=== PATIENT | female | born 1975 | race Caucasian/White ===

== ENCOUNTER 2016-07-05 15:33 | Emergency (ER) | payer OTHER, MEDICAID ==
[2016-07-05 15:38] VITALS: TEMP 98.8
[2016-07-05] MEDS ORDERED: NS 1,000 ML IV ONE ×2 (16:22→18:14)
[2016-07-05] MEDS ORDERED: PROMETHAZINE HCL 25 MG/ML INJ IVP ONE ×2 (16:22→18:22)
[2016-07-05] MEDS ORDERED: HYDROmorphONE/DILAUDID 1 MG/ML SYR IVP ONE ×2 (16:22→17:34)
--- NOTE | 2016-07-05 16:24 | EDPHY ---
H & P Stated Complaint: High blood sugar Time Seen by Provider: 07/05/16 15:43 HPI/ROS: CHIEF COMPLAINT: Whole-body pain, abdominal pain, and nausea HISTORY OF PRESENT ILLNESS: This is a 41 year old female with h/o SLE, chronic pain, anxiety, fibromyalgia and DM type 2 who reports concerned about "whole body pain", abdominal pain, and nausea. This has been present since she underwent endoscopy and colonoscopy one month ago. She states that polyps were reoved. She had some bleeding afterwards and still notes some spotting on the toilet tissue after bowel movements. She is worried that she might be anemic. She feels fatigued. She has early satiety and abdominal bloating after eating.She has nausea but no vomiting. She tells me that she has cut back on her PO intake. The abdominal pain is a cramping sensation, worse after meals. She has been having bowel movements, some occasional diarrhea. Her gall bladder has been removed. She has seen her PCP (three days ago) and has an appointment on 07/13/16 with her her artillery meteorological man. An abdominal CT has been ordered as an outpatient on . She is also worried about high blood sugars and states that her BS have been up to 250, which is unusual for her. All of the above is worsening her chronic anxiety REVIEW OF SYSTEMS: A ten point review of systems was performed and is negative with the exception of the items mentioned in the HPI. Source: Patient Exam Limitations: No limitations - Personal History LMP (Females 10-55): Now Current Tetanus/Diphtheria Vaccine: Unsure Current Tetanus Diphtheria and Acellular Pertussis (TDAP): Unsure - Medical/Surgical History Hx Asthma: Yes Hx Chronic Respiratory Disease: No Hx Diabetes: Yes Hx Cardiac Disease: No Hx Renal Disease: No Hx Cirrhosis: No Hx Alcoholism: No Hx HIV/AIDS: No Hx Splenectomy or Spleen Trauma: No Other PMH: pmh- lupus, seizures, asthma, kidney stones, DM II, anxiety, chronic pain. psh- 18 surgeries- cholecystectomy, appendectomy, legs, thyroid, THYMOMA, - Social History Smoking Status: Never smoked Additional Social History: Lives with and son. No tobacco or alcohol use. She is disabled. - Physical Exam Exam: General: Appears anxious. Alert. BP 162/85. HEENT: Conjunctiva clear, anicteric. Oral mucosa moist. Oropharynx without edema or erythema. Neck: No lymphadenopathy. Trachea midline. Lungs: CTA, no wheezes, rales, or ronchi. Cardiac: RRR, no murmur, rub, or gallop.' Abdomen: Obese, soft, mild diffuse tenderness without focal area of worse tenderness, no guarding. Unable to assess for organomegaly due to body habitus. Bowel sounds present. Back: No CVAT. No tenderness with palpation of T-L spine. Skin: Warm and dry, no rash. Pulses: 2+ radial pulses. Extremities: No LE edema. No calf pain or swelling. Neuro: Alert, oriented to person, place, time, situation.PERRL. EOMI. Tongue midline. Facial expressions symmetric. Moving all four extremities easily and equally. Psych: No agitation. Anxious affect. Constitutional: Initial Vital Signs Temperature (C) 37.1 C 07/05/16 15:35 Heart Rate 87 07/05/16 15:35 Respiratory Rate 16 07/05/16 15:35 Blood Pressure 162/85 H 07/05/16 15:35 O2 Sat (%) 96 07/05/16 15:35 O2 Delivery Mode Room Air O2 (L/minute) 2 Allergies/Adverse Reactions: amoxicillin [Amoxicillin] Allergy (Unknown, Verified 05/22/16 10:21) droperidol [From Inapsine] Allergy (Unknown, Verified 05/22/16 10:21) prochlorperazine edisylate [From Compazine] Allergy (Unknown, Verified 05/22/16 10:21) prochlorperazine maleate [From Compazine] Allergy (Unknown, Verified 05/22/16 10 :21) sulfamethoxazole [From Bactrim] Allergy (Unknown, Verified 05/22/16 10:21) trimethoprim [From Bactrim] Allergy (Unknown, Verified 05/22/16 10:21) Butyrophenones Allergy (Verified 05/22/16 10:21) latex [Latex] Allergy (Verified 05/22/16 10:21) Penicillins Allergy (Verified 05/22/16 10:21) Home Medications: Medication Instructions Recorded Acetaminophen [Tylenol 325mg (*)] 325 mg PO Q6 PRN 04/29/15 Albuterol [Proventil Inhaler HFA 2 puffs IH Q4 PRN 04/29/15 (*)] Gabapentin 600 mg PO TID 04/29/15 Herbals/Supplements -Info Only 1 ea PO DAILY 04/29/15 Hydroxychloroquine Sulfate 200 mg PO BID 04/29/15 [Plaquenil 200 mg (*)] Levothyroxine [Synthroid 100 mcg 300 mcg PO HS 04/29/15 (*)] Losartan Potassium [Cozaar 25 mg 25 mg PO DAILY 04/29/15 (*)] Metformin HCl [Metformin 1000 mg] 1,000 mg PO DAILY 04/29/15 NIFEDipine [Nifedical Xl] 15 mg PO BID 04/29/15 Nitroglycerin [Nitrostat] 0.6 mg SL PRN PRN 04/29/15 Nystatin [Mycostatin Oral Liquid 5 ml PO QID 04/29/15 (*)] Omeprazole 40 mg PO DAILY 04/29/15 Triamcinolone 0.1% [Triamcinolone 1 radha TP BID PRN 04/29/15 0.1% Cream (*)] celeCOXIB [Celebrex (*)] 200 mg PO BID 04/29/15 levETIRAcetam [Keppra 500 mg (*)] 500 mg PO BID 04/29/15 methylPREDNISolone [Medrol 4mg (*)] 6 mg PO DAILY 04/29/15 oxyCODONE CR [Oxycontin] 80 mg PO BID 04/29/15 oxyCODONE IR [Oxycodone Ir (*)] 30 mg PO Q6 PRN 04/29/15 Lorazepam 2 mg PO TID PRN #30 tablet 05/05/15 Nortriptyline HCl [Pamelor 25 mg 50 mg PO HS #30 cap 05/05/15 (*)] Promethazine HCl [Phenergan 12.5 mg [place] BID PRN #10 suppr 05/05/15 Rectal] Promethazine HCl [Phenergan 25mg 75 mg PO HS #30 tab 05/05/15 (*)] Ranitidine HCl 150 mg PO BID #60 tablet 05/05/15 Sucralfate [Carafate] 1 gm PO ACHS #40 tab 05/05/15 Lasix 20 MG (*) 20 mg PO PRN 04/02/16 Medical Decision Making ED Course/Re-evaluation: Re-evaluated at 4:45 p.m.. She continues with diffuse abdominal pain. She has not had vomiting. Re-evaluated at 5:40 p.m.. She has just received a 2nd dose of Dilaudid 0.5 mg IV. On examination she continues with mild diffuse abdominal pain no peritoneal signs. She has a CT scan of abdomen and pelvis scheduled as an outpatient and this has been rescheduled from the to tomorrow. It has been ordered by the gastroenterology service and should be done with IV and oral contrast. Re-evaluated at 6:30 p.m.. She is feeling better after receiving 1.5 mg of Dilaudid IV and 25 mg of Phenergan IV. I reviewed her blood work. AST and ALT are elevated and have been in the past (although they are somewhat higher tonight them previously). She has had a cholecystectomy. She does not have focal right upper quadrant or mid epigastric tenderness. She is compliant with her acid blocking medications. Her blood sugar is 143. Hemoglobin and hematocrit have been improving over the past month. I am not finding anything in her lab work that needs further evaluation tonight. I do not suspect infection. Urinalysis does not show signs of infection. She has not had cough or shortness of breath and her lungs are clear to auscultation, making pneumonia unlikely. She has no complaints of an upper respiratory infection. Her abdominal pain is long-standing, present for at least a month, beginning after her colonoscopy. I do not suspect perforation or abscess. She has been seen by her primary care physician and by her artillery meteorological man for this complaint. She has GI FU next week after CT scan. I have reassured her that her blood glucose is 143 tonight and can be followed up by her PCP. I do not feel that she needs needs emergent scanning of her abdomen and pelvis. This has been scheduled by her artillery meteorological man as an outpatient study and will be performed tomorrow. She has undergone serial abdominal exams and at no time has she had peritoneal signs. Differential Diagnosis: I considered a differential diagnosis that includes but is not limited to pancreatitis, peptic ulcer disease, bowel obstruction, viscus perforation, intra -abdominal abscess, diverticulitis, urinary tract infection. - Data Points Laboratory Results: Laboratory Results 07/05/16 16:10 07/05/16 16:10 Medications Given: Discontinued Medications Hydromorphone HCl (Dilaudid) 1 mg IVP EDNOW ONE Stop: 07/05/16 16:23 Last Admin: 07/05/16 16:31 Dose: 1 mg Hydromorphone HCl (Dilaudid) 0.5 mg IVP EDNOW ONE Stop: 07/05/16 17:35 Last Admin: 07/05/16 17:35 Dose: 0.5 mg Sodium Chloride (Ns) 1,000 mls @ 0 mls/hr IV ONCE ONE PRN Reason: Wide Open Stop: 07/05/16 16:23 Last Admin: 07/05/16 16:31 Dose: 1,000 mls Sodium Chloride (Ns) 1,000 mls @ 0 mls/hr IV ONCE ONE PRN Reason: Wide Open Stop: 07/05/16 18:15 Last Admin: 07/05/16 18:15 Dose: 1,000 mls Promethazine HCl (Phenergan Injection) 12.5 mg IVP EDNOW ONE Stop: 07/05/16 16:23 Last Admin: 07/05/16 16:32 Dose: 12.5 mg Promethazine HCl (Phenergan Injection) 12.5 mg IVP ONCE ONE Stop: 07/05/16 18:23 Last Admin: 07/05/16 18:24 Dose: 12.5 mg Departure - Departure Disposition: Home, Routine, Self-Care Clinical Impression: Abdominal pain Qualifiers: Abdominal location: generalized Qualifier Code: (R10.84) Generalized abdominal pain Condition: Good Instructions: Abdominal Pain (ED) Additional Instructions: CT scan of her abdomen and pelvis is been rescheduled for tomorrow. Drink the contrast as instructed. Your appointment is at noon tomorrow. Referrals: Holly Devries MD [Primary Care Provider] - As per Instructions Hamzah Rios MD [Medical Doctor] - As per Instructions
[2016-07-05 16:45] LABS: % IMMATURE GRANULYOCYTES 0.6 % (0.0-1.1); ABSOLUTE IMMATURE GRANULOCYTES 0.03 10^3/uL (0.00-0.10); ADD DIFF? NO; ADD MORPH? NO; ADD SCAN? NO; ATYPICAL LYMPHOCYTE FLAG 10 (0-99); FRAGMENT RBC FLAG 0 (0-99); HEMATOCRIT 37.6 % (38.0-47.0); HEMOGLOBIN 12.6 g/dL (12.6-16.3); LEFT SHIFT FLG 0 (0-99); LIPEMIA HEMOLYSIS FLAG 80 (0-99); MEAN CELL HEMOGLOBIN 29.4 pg (27.9-34.1); MEAN CELL HEMOGLOBIN CONCENTR. 33.5 g/dL (32.4-36.7); MEAN CELL VOLUME 87.6 fL (81.5-99.8); MEAN PLATELET VOLUME 10.5 fL (8.7-11.7); PLATELET CLUMPS FLAG 20 (0-99); PLATELET COUNT 182 10^3/uL (150-400); RED BLOOD CELL COUNT 4.29 10^6/uL (4.18-5.33); RED CELL DISTRIBUTION WIDTH 14.9 % (11.5-15.2)
[2016-07-05 16:56] LABS: ALANINE AMINOTRANSFERASE 113 IU/L (9-52); ALBUMIN 3.6 g/dL (3.5-5.0); ALKALINE PHOSPHATASE 104 IU/L (38-126); ANION GAP 13 mEq/L (8-16); ASPARTATE AMINOTRANSFERASE 240 IU/L (14-46); BILIRUBIN,TOTAL 0.7 mg/dL (0.1-1.4); BILIRUBIN-CONJUGATED 0.5 mg/dL (0.0-0.5); BILIRUBIN-UNCONJUGATED 0.2 mg/dL (0.0-1.1); CALCIUM 8.9 mg/dL (8.5-10.4); CARBON DIOXIDE 23 mEq/l (22-31); CHLORIDE 105 mEq/L (97-110); CREATININE 0.5 mg/dL (0.6-1.0); GLOMERULAR FILTRATION RATE > 60; GLUCOSE 143 mg/dL (70-100); SODIUM 141 mEq/L (134-144); TOTAL PROTEIN 7.1 g/dL (6.3-8.2)
[2016-07-05] MEDS ORDERED: HYDROmorphONE/DILAUDID 1 MG/ML SYR ONE (17:31)
[2016-07-05] MEDS ORDERED: PROMETHAZINE HCL 25 MG/ML INJ ONE (18:19)
[2016-07-05 18:20] LABS: COLOR YELLOW; LEUKOCYTE ESTERASE,URINE NEGATIVE (NEGATIVE); NITRITE,URINE NEGATIVE (NEGATIVE)
[2016-07-05 18:24] LABS: BACTERIA TRACE /hpf (NONE SEEN); MUCUS TRACE /lpf (NONE-1+)
[2016-07-05 19:17] VITALS: BP 157/60; PULSE 76; RESP 16; O2SAT 98
== END 2016-07-05 19:17 | disposition home or self-care (01) ==
DX: R10.84 Generalized abdominal pain (principal); J45.909 Unspecified asthma, uncomplicated; E11.9 Type 2 diabetes mellitus without complications; Z90.49 Acquired absence of other specified parts of digestive tract; Z91.040 Latex allergy status
CPT/HCPCS: 96361; 96374; 96375; 96376; 99284; J1170; J2550; 82947-QW

== ENCOUNTER → 2016-07-06 | Outpatient (CLI) | payer OTHER, MEDICAID ==
[~2016-07-06] MED LIST: IOPAMIDOL (ISOVUE-300) 100 ML BTL IV ONE
--- NOTE | 2016-07-06 18:26 | CT ---
CT Scan of the Abdomen and Pelvis (With Contrast) 1739 hours History: Generalized abdominal pain. History of lupus and diabetes. Previous abdominal surgeries. Hepatic steatosis (K 76.0). Long-term medication use (V 58.69) Technique: Axial computed tomographic images of the abdomen and pelvis were obtained with the unevent ful intravenous administration of 100 mL Isovue-300 contrast. Oral contrast was also administered. Im ages were reviewed in multiple planes. Dose reduction techniques were utilized. CT Abdomen and Pelvis Findings: Comparison to prior CT study of April 29, 2015. Comparison also to prior noncontrast CT study from July 23, 2014. Lung bases: Normal. Liver: There are numerous nodules demonstrate increased density within the liver measuring between 9 and 16 mm in diameter. Allowing for slight difference in technique, these appear to have been present previously. On the prior noncontrast CT exam these were also increased in attenuation. There is stab le lobulated contour to the liver with some areas of more prominent hypodensity diffusely compatible with hepatic steatosis. No definite new hepatic mass is identified. The liver is mildly enlarged yovana uring 21.5 cm in length.. Spleen: Stable borderline splenomegaly measuring 13.7 x 6.7 x 11.6 cm without focal abnormality. Gallbladder and Bile Ducts: Previous cholecystectomy. No biliary ductal dilatation is identified. Pancreas: Normal. Adrenals: Normal. Kidneys: There is a stable 8 mm nonobstructive calculus lower pole left kidney. No new renal calculi are seen or evidence of mass. There is no hydronephrosis. Abdominal Aorta: No aneurysm. Pelvic structures: The uterus has a normal contour. No adnexal mass is seen. Bladder: Normal. Appendix: Previous appendectomy. Bowel Loops: Normal. No bowel obstruction, ascites, or significant retroperitoneal lymphadenopathy. Skeletal system: Vertebral body heights are well-maintained. There are no significant lytic or scler otic osseous lesions. Impression: 1. Numerous increased density nodules involving the right and left lobes of the liver that allowing f or slight difference in technique appear to be stable when compared to prior studies. These were dens e on prior noncontrast CT study of the abdomen. This could represent regenerating nodules with surrou nding hepatic steatosis. Considering the relative lack of change, the possibility of hepatocellular c arcinoma is felt to be much less likely. 2. No CT evidence of abscess or bowel obstruction. 3. Nonobstructive calculus lower pole left kidney.
== END ==
LOC: FIMAGING 16:56
PROVIDERS: ATTEND Internal Medicine Gastroenterology
DX: K76.89 Other specified diseases of liver (principal); K76.0 Fatty (change of) liver, not elsewhere classified; N20.0 Calculus of kidney; E11.9 Type 2 diabetes mellitus without complications
CPT/HCPCS: 74174; Q9967

== ENCOUNTER 2016-09-24 18:04 | Emergency (ER) | payer OTHER, MEDICAID ==
[2016-09-24 18:27] VITALS: RESP 16; TEMP 98.4
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
[2016-09-24] MEDS ORDERED: OXYCODONE/APAP 5/325 TAB PO ONE (19:11)
[2016-09-24] MEDS ORDERED: NS 1,000 ML IV ONE (19:11)
[2016-09-24] MEDS ORDERED: PROMETHAZINE HCL 25 MG TAB PO ONE (19:11)
[2016-09-24 20:10] LABS: % IMMATURE GRANULYOCYTES 0.2 % (0.0-1.1); ABSOLUTE IMMATURE GRANULOCYTES 0.01 10^3/uL (0.00-0.10); ADD DIFF? NO; ADD MORPH? NO; ADD SCAN? NO; ATYPICAL LYMPHOCYTE FLAG 10 (0-99); FRAGMENT RBC FLAG 0 (0-99); HEMATOCRIT 35.2 % (38.0-47.0); HEMOGLOBIN 11.6 g/dL (12.6-16.3); LEFT SHIFT FLG 0 (0-99); LIPEMIA HEMOLYSIS FLAG 80 (0-99); MEAN CELL HEMOGLOBIN 29.5 pg (27.9-34.1); MEAN CELL VOLUME 89.6 fL (81.5-99.8); PLATELET CLUMPS FLAG 0 (0-99); PLATELET COUNT 152 10^3/uL (150-400); RED BLOOD CELL COUNT 3.93 10^6/uL (4.18-5.33); RED CELL DISTRIBUTION WIDTH 14.4 % (11.5-15.2)
[2016-09-24 20:26] LABS: ANION GAP 9 mEq/L (8-16); CALCIUM 9.3 mg/dL (8.5-10.4); CARBON DIOXIDE 27 mEq/l (22-31); CHLORIDE 104 mEq/L (97-110); CREATININE 0.5 mg/dL (0.6-1.0); GLOMERULAR FILTRATION RATE > 60; GLUCOSE 166 mg/dL (70-100); POTASSIUM 3.6 mEq/L (3.5-5.2); SODIUM 140 mEq/L (134-144)
[2016-09-24 21:15] VITALS: BP 154/94; PULSE 96; O2SAT 98
[2016-09-26 18:43] LABS: HEMOGLOBIN A1C 7.4 % (4.0-6.0)
== END 2016-09-24 21:14 | disposition home or self-care (01) ==
DX: R51 Headache (principal); J45.909 Unspecified asthma, uncomplicated; E11.9 Type 2 diabetes mellitus without complications; Z91.040 Latex allergy status; Z79.84 Long term (current) use of oral hypoglycemic drugs

== ENCOUNTER 2018-07-01 16:17 | Inpatient (IN) | payer OTHER, MEDICAID ==
--- NOTE | 2018-07-01 17:10 | EDPHY ---
H & P Stated Complaint: dizzy and diaphoretic - Personal History Current Tetanus/Diphtheria Vaccine: Yes Current Tetanus Diphtheria and Acellular Pertussis (TDAP): Yes - Medical/Surgical History Hx Asthma: Yes Hx Chronic Respiratory Disease: No Hx Diabetes: Yes Hx Cardiac Disease: No Hx Renal Disease: No Hx Cirrhosis: No Hx Alcoholism: No Hx HIV/AIDS: No Hx Splenectomy or Spleen Trauma: No Other PMH: pmh- lupus, seizures, asthma, kidney stones, DM II, anxiety, chronic pain. psh- 18 surgeries- abd, legs, thyroid, THYMOMA, fibromyalgia - Social History Smoking Status: Never smoked Time Seen by Provider: 07/01/18 16:39 HPI/ROS: CHIEF COMPLAINT: Low back pain, urinary incontinence HISTORY OF PRESENT ILLNESS: 43-year-old female with medical history significant for chronic back pain, lupus, arrives via private vehicle with her care provider stating that 2 weeks ago she sustained mechanical fall x2. This was not a syncopal episode. Ever since seems to have exacerbated her chronic low back pain which has been particularly worse in the past 24 hr, unrelieved by her usual course of opiates and benzodiazepines. Today she had 4 episodes of urinary incontinence. She has previously seen Dr. Jasiel Roche who recommend she go to the ER for evaluation if she developed incontinence. No direct trauma to her back today or recently. No Abdominal pain. No head injury. No lower extremity radiculopathy. Denies fecal incontinence. Denies saddle anesthesia. No fever no chills. No flu-like symptoms. PRIMARY CARE PROVIDER: REVIEW OF SYSTEMS: 10 systems reviewed and negative with the exception of the elements mentioned in the history of present illness PAST MEDICAL & SURGICAL HISTORY: Morbid obesity. Lupus. Chronic low back pain. Opiate dependence SOCIAL HISTORY:Lives with her and college-aged child. PHYSICAL EXAM (Prior to examination, patient consented to physical exam, hands were washed and my usual and customary physical exam procedures followed) 1) GENERAL: Obese. Alert and oriented. Appears nontoxic. 2) HEAD: Normocephalic, atraumatic 3) HEENT: Pupils equal, round, reactive to light bilaterally. Sclera anicteric. 4) NECK: Full range of motion, no meningeal signs. 5) LUNGS: Clear auscultation bilaterally, no wheezes, no rhonchi, no retractions. 6) HEART: Regular rate and rhythm, no murmur, no heave, no gallop. 7) ABDOMEN: No guarding, no rebound, no focal tenderness, negative McBurney's, negative Thibodeaux's, negative Rovsing's, negative peritoneal sign, 8) MUSCULOSKELETAL: Moving all extremities, no focal areas of tenderness, no obvious trauma. No peripheral edema or discoloration. 9) BACK: Tender to palpation midline low lumbar region. No effusion. No step- off. Hyporeflexive left left patella and Achilles. Right lower extremity: Patella and Achilles reflexes are strong. No footdrop. 10) SKIN: No rash, no petechiae. 11) Psychiatric: Patient is oriented X 3, there is no agitation. DIFFERENTIAL DIAGNOSIS: In no particular order, including but not limited to, fracture, sprain/strain, cauda equina, spinal infectious etiology. (Jaleesa Castellanos) Constitutional: Initial Vital Signs Temperature (C) 37 C 07/01/18 16:31 Heart Rate 80 07/01/18 16:31 Respiratory Rate 16 07/01/18 16:31 Blood Pressure 150/99 H 07/01/18 16:31 O2 Sat (%) 92 07/01/18 16:31 O2 Delivery Mode Room Air O2 (L/minute) 3 Allergies/Adverse Reactions: amoxicillin [Amoxicillin] Allergy (Unknown, Verified 07/01/18 16:26) droperidol [From Inapsine] Allergy (Unknown, Verified 07/01/18 16:26) prochlorperazine edisylate [From Compazine] Allergy (Unknown, Verified 07/01/18 16:26) prochlorperazine maleate [From Compazine] Allergy (Unknown, Verified 07/01/18 16 :26) sulfamethoxazole [From Bactrim] Allergy (Unknown, Verified 07/01/18 16:26) trimethoprim [From Bactrim] Allergy (Unknown, Verified 07/01/18 16:26) Butyrophenones Allergy (Verified 07/01/18 16:26) latex [Latex] Allergy (Verified 07/01/18 16:26) Penicillins Allergy (Verified 07/01/18 16:26) Home Medications: Medication Instructions Recorded Acetaminophen [Tylenol 325mg (*)] 325 mg PO Q6 PRN 04/29/15 Albuterol [Proventil Inhaler HFA 2 puffs IH Q4 PRN 04/29/15 (*)] Gabapentin 600 mg PO BID 04/29/15 Hydroxychloroquine Sulfate 200 mg PO BID 04/29/15 [Plaquenil 200 mg (*)] Levothyroxine [Synthroid 100 mcg 200 mcg PO HS 04/29/15 (*)] Metformin HCl [Metformin 1000 mg] 1,000 mg PO BIDMEAL 04/29/15 Nystatin [Mycostatin Oral Liquid 5 ml PO BID PRN 04/29/15 (*)] Omeprazole 40 mg PO BIDMEAL 04/29/15 Triamcinolone 0.1% [Triamcinolone 1 radha TP BID PRN 04/29/15 0.1% Cream (*)] celeCOXIB [Celebrex (*)] 200 mg PO BID 04/29/15 oxyCODONE IR [Oxycodone Ir (*)] 30 mg PO Q6 PRN 04/29/15 Nortriptyline HCl [Pamelor 25 mg 50 mg PO HS #30 cap 05/05/15 (*)] Bcp 1 tab PO DAILY 07/01/18 Lorazepam 2 mg PO BID PRN 07/01/18 Sucralfate [Carafate] 1 gm PO BIDAC 07/01/18 Symbicort 160-4.5 Mcg Inh (*) 2 puffs IH BID 07/01/18 Medical Decision Making - Diagnostics Imaging Results: Imaging Impressions Lumbar Spine MRI 07/01/18 17:22 Impression: 1. Negative for significant disk herniation or cauda equina syndrome.. 2. Borderline canal stenosis is noted at L4-L5. 3. See above report for findings at specific levels. Results called and discussed with Jaleesa HERRERA on 07/01/2018 at 20:17.. ED Course/Re-evaluation: 5:26 p.m.: I reviewed the patient's old medical records. She has a history of chronic back pain and current complaints urinary incontinence with left lower extremity hyperreflexia noted. Recommended MRI. Indications risks benefits discussed with patient and she consents. Care of patient under supervision of secondary supervising physician Dr Leblanc with whom I discussed case. 8:20 p.m.: Re-evaluation. Discussed her MRI results showing no evidence of cauda equina, no significant disc herniation. She remains complaining of significant amount of pain, does not feel she is able to care for self. Will plan on admission. At this time there is no emergent indication for neurosurgical consultation. 8:33 p.m.: Consultation with hospitalist Dr. Aleksandr Oconnor who will admit patient (Jaleesa Castellanos) Other Provider: PHYSICIAN DOCUMENTATION: The patient was evaluated and managed by the Physician Box Stamper and myself. I have reviewed the chart and agree with the findings and plan of care as documented. In addition, I examined the patient myself. History confirmed as worsening nontraumatic back pain, complains of numbness in legs. Physical findings as follows: Movement intact in both feet. Speech fluent. Plan for MRI and symptomatic treatment. I am the secondary supervising physician. (Beny Leblanc) - Data Points Laboratory Results: Laboratory Results 07/01/18 17:20 07/01/18 17:20 07/01/18 07/01/18 07/01/18 19:04 17:20 17:20 WBC RBC Hgb Hct MCV MCH MCHC RDW Plt Count MPV Neut % (Auto) Lymph % (Auto) [place] % (Auto) Eos % (Auto) Baso % (Auto) Nucleat RBC Rel Count Absolute Neuts (auto) Absolute Lymphs (auto) Absolute Monos (auto) Absolute Eos (auto) Absolute Basos (auto) Absolute Nucleated RBC Immature Gran % Immature Gran # Sodium 136 mEq/L mEq/L (135-145) Potassium 4.1 mEq/L mEq/L (3.5-5.2) Chloride 104 mEq/L mEq/L (97-110) Carbon Dioxide 24 mEq/l mEq/l (22-31) Anion Gap 8 mEq/L mEq/L (6-14) BUN 12 mg/dL mg/dL (7-23) Creatinine 0.6 mg/dL mg/dL (0.6-1.0) Estimated GFR > 60 Glucose 114 mg/dL H mg/dL (70-100) Calcium 9.3 mg/dL mg/dL (8.5-10.4) Beta HCG, Qual NEGATIVE Urine Color YELLOW Urine Appearance CLEAR Urine pH 5.0 (5.0-7.5) Ur Specific [place] 1.028 (1.002-1.030) Urine Protein 2+ H (NEGATIVE) Urine Ketones NEGATIVE (NEGATIVE) Urine Blood NEGATIVE (NEGATIVE) Urine Nitrate NEGATIVE (NEGATIVE) Urine Bilirubin NEGATIVE (NEGATIVE) Urine Urobilinogen NEGATIVE EU EU (0.2-1.0) Ur Leukocyte Esterase NEGATIVE (NEGATIVE) Urine RBC 1-3 /hpf /hpf (0-3) Urine WBC 3-5 /hpf H /hpf (0-3) Ur Epithelial Cells TRACE /lpf /lpf (NONE-1+) Hyaline Casts 1-5 /lpf /lpf (0-1) Urine Mucus 2+ /lpf H /lpf (NONE-1+) Urine Glucose NEGATIVE (NEGATIVE) 07/01/18 17:20 WBC 5.71 10^3/uL 10^3/uL (3.80-9.50) RBC 4.39 10^6/uL 10^6/uL (4.18-5.33) Hgb 13.0 g/dL g/dL (12.6-16.3) Hct 38.0 % % (38.0-47.0) MCV 86.6 fL fL (81.5-99.8) MCH 29.6 pg pg (27.9-34.1) MCHC 34.2 g/dL g/dL (32.4-36.7) RDW 14.1 % % (11.5-15.2) Plt Count 179 10^3/uL 10^3/uL (150-400) MPV 9.6 fL fL (8.7-11.7) Neut % (Auto) 56.4 % % (39.3-74.2) Lymph % (Auto) 34.9 % % (15.0-45.0) [place] % (Auto) 5.8 % % (4.5-13.0) Eos % (Auto) 2.1 % % (0.6-7.6) Baso % (Auto) 0.4 % % (0.3-1.7) Nucleat RBC Rel Count 0.0 % % (0.0-0.2) Absolute Neuts (auto) 3.23 10^3/uL 10^3/uL (1.70-6.50) Absolute Lymphs (auto) 1.99 10^3/uL 10^3/uL (1.00-3.00) Absolute Monos (auto) 0.33 10^3/uL 10^3/uL (0.30-0.80) Absolute Eos (auto) 0.12 10^3/uL 10^3/uL (0.03-0.40) Absolute Basos (auto) 0.02 10^3/uL 10^3/uL (0.02-0.10) Absolute Nucleated RBC 0.00 10^3/uL 10^3/uL (0-0.01) Immature Gran % 0.4 % % (0.0-1.1) Immature Gran # 0.02 10^3/uL 10^3/uL (0.00-0.10) Sodium Potassium Chloride Carbon Dioxide Anion Gap BUN Creatinine Estimated GFR Glucose Calcium Beta HCG, Qual Urine Color Urine Appearance Urine pH Ur Specific [place] Urine Protein Urine Ketones Urine Blood Urine Nitrate Urine Bilirubin Urine Urobilinogen Ur Leukocyte Esterase Urine RBC Urine WBC Ur Epithelial Cells Hyaline Casts Urine Mucus Urine Glucose Medications Given: Promethazine HCl (Phenergan) 12.5 mg IVP Q6HRS PRN PRN Reason: Nausea/Vomiting, Can't Take PO Stop: 12/28/18 20:27 Last Admin: 07/01/18 20:34 Dose: 12.5 mg Discontinued Medications Hydromorphone HCl (Dilaudid) 1 mg IVP EDNOW ONE Stop: 07/01/18 17:55 Last Admin: 07/01/18 18:13 Dose: 1 mg Hydromorphone HCl (Dilaudid) 0.5 mg IVP EDNOW ONE Stop: 07/01/18 19:14 Last Admin: 07/01/18 20:24 Dose: 0.5 mg Sodium Chloride (Ns) 1,000 mls @ 0 mls/hr IV ONCE ONE PRN Reason: Wide Open Stop: 07/01/18 17:55 Last Admin: 07/01/18 18:09 Dose: 1,000 mls Lorazepam (Ativan Injection) 1 mg IVP EDNOW ONE Stop: 07/01/18 17:39 Last Admin: 07/01/18 18:14 Dose: 1 mg Ondansetron HCl (Zofran) 4 mg IVP EDNOW ONE Stop: 07/01/18 17:55 Last Admin: 07/01/18 18:09 Dose: 4 mg Departure - Departure Disposition: [facility] Inpatient Acute Clinical Impression: Intractable low back pain Condition: Fair
[2018-07-01 17:35] LABS: PLATELET COUNT 179 10^3/uL (150-400)
[2018-07-01] MEDS ORDERED: LORazepam 2 MG/ML INJ IVP ONE (17:38)
[2018-07-01] MEDS ORDERED: ONDANSETRON 4 MG/2 ML VIAL IVP ONE (17:54)
[2018-07-01] MEDS ORDERED: NS 1,000 ML IV ONE (17:54)
[2018-07-01] MEDS ORDERED: HYDROmorphONE/DILAUDID 1 MG/ML INJ IVP ONE (17:54)
[2018-07-01] MEDS ORDERED: HYDROmorphONE/DILAUDID 2 MG/ML INJ IVP ONE (19:13)
[2018-07-01] MEDS: PROMETHAZINE HCL 25 MG/ML INJ IVP PRN (20:34)
[2018-07-01] MEDS ORDERED: MUPIROCIN 2% 22 GM OINT TP PRN (21:29)
[2018-07-01] MEDS ORDERED: TRIAMCINOLONE 0.1% 15 GM CRTUBE TP PRN (21:29)
[2018-07-01] MEDS ORDERED: ALBUTEROL 60 PUFFS/8 GM MDI IH PRN (21:29)
[2018-07-01] MEDS ORDERED: NYSTATIN SUSP 500000 UNIT/5 ML UD LIQ PO PRN (21:29)
[2018-07-01] MEDS ORDERED: ACETAMINOPHEN 325 MG TAB PO PRN (21:29)
--- NOTE | 2018-07-01 21:36 | GHP ---
DATE OF ADMISSION: 07/01/2018 CHIEF COMPLAINT: Back pain and an inability to ambulate safely. HPI: This is a 43 year-old female with a history of multiple medical problems, including fibromyalgia, lupus, chronic pain, presented to the emergency department today with reports of bowel and bladder incontinence in the setting of increasing back pain. The patient states that she has had multiple falls at home over the past few weeks. Last fall was about 2 weeks ago when she fell onto her left side. Ever since this fall, she has had worsening pain in her low back, as well as weakness, as well as numbness in her groin area. She has been using opiates and benzodiazepines at home, which have not helped. She has had 4 episodes of urinary incontinence today. She has previously seen who had in the past recommended that she seek emergency medical care if she developed any incontinence. PAST MEDICAL HISTORY: 1. Lupus. 2. Hypothyroidism. 3. Hypertension. 4. Type 2 diabetes mellitus. 5. Seizure disorder. 6. Asthma. 7. History of chronic pain and opioid dependence. 8. Hepatitis C, diagnosed December 2012. PAST SURGICAL HISTORY: The patient tells me that she has had multiple orthopedic surgeries, as well as appendectomy, cholecystectomy and section. HOME MEDICATIONS: Reviewed. Refer to [facility] for details. ALLERGIES: Latex, penicillin, Bactrim, Compazine, Inapsine, and butyrophenones. SOCIAL HISTORY: The patient denies any alcohol, tobacco or illicit drug use. She lives in [place] and has home care. FAMILY HISTORY: Reviewed and noncontributory. REVIEW OF SYSTEMS: Comprehensive 10-point review of systems was done and is negative except as mentioned in the HPI and below. CONSTITUTIONAL: The patient states that she has been having some fevers and chills. She reports nausea, which is unusual for her. PHYSICAL EXAM: VITAL SIGNS: Blood pressure 129/70, pulse of 77, respiratory rate 18, O2 sats 97% on room air, temperature afebrile. GENERAL: No acute distress. HEAD: Normocephalic, atraumatic. EYES: PERRLA. Sclerae anicteric. MOUTH: Moist mucous membranes. NECK: Supple. No lymphadenopathy. CARDIOVASCULAR: S1, S2. No murmurs, rubs, clicks, gallops. No JVD. No lower extremity edema. PULMONARY: Lungs are clear. No wheezes, rales, or rhonchi. ABDOMEN: Soft, nontender, nondistended. No guarding or rebound tenderness. Normoactive bowel sounds. EXTREMITIES: No clubbing or cyanosis. NEURO: The patient reports decreased sensation in her left thigh. Positive straight leg raising on the left. There is no clonus in the bilateral lower extremities. DTRs are diminished at the patella but symmetric bilaterally. Muscle strength is 4/5 left plantar flexion. The patient states she is unable to walk. SKIN: Clear. No rashes. DIAGNOSTICS: Lumbar MRI done today was reviewed and was negative for significant disk herniation or cauda equina syndrome. There is borderline canal stenosis at L4-L5. See report for details. ASSESSMENT/PLAN: This is a 43-year-old female with a history of lupus, fibromyalgia, and chronic pain requiring opioid dependency, presenting with: 1. Worsening low back pain with reports of bowel and bladder incontinence. Plan: The patient will be admitted to the hospital given that she does not appear to be safe for discharge since she is unable to ambulate and has been falling in the setting of increasing pain and reported incontinence. We will try to minimize intravenous narcotics and continue her home pain medications, as well as increase home dose of gabapentin. Will ask my colleagues to consult Neurosurgery in the morning for further evaluation. 2. History of systemic lupus erythematosus. Plan: Recommend outpatient followup with the patient's rand tacker, Dr. Willard Ramos. We will add an ESR, CRP for completeness sake. 3. History of diabetes mellitus, 2. Plan is continue home dose of metformin. 4. Positive hepatitis C antibody. Plan: We will obtain LFTs and recommend outpatient followup as indicated. 5. History of hypothyroidism. Plan: Last TSH was undetectable at less than 0.015. We will repeat TSH. 6. The patient is high risk for venous thromboembolism, and we will place on Lovenox while in the hospital. /[id number]/MODL MTDD
[2018-07-02] MEDS: LORazepam 0.5 MG TAB PO PRN ×2 (00:04→17:25)
[2018-07-02] MEDS: GABAPENTIN 400 MG CAP PO SCH ×3 (00:04→17:15)
[2018-07-02] MEDS: oxyCODONE IR 15 MG TAB PO PRN ×2 (02:22→10:31)
--- NOTE | 2018-07-02 07:47 | PDMN ---
Medical Necessity Medical necessity: Pt meets IP criteria as of 07/01/2018 per and [facility] M-63 ( Back pain); est los > 2 mn for ongoing tx and management of severe back pain with increased bowel and bladder incontinence and frequent falls; requiring neurosurgical consultation, further workup, pain management, PT/OT and management of chronic conditions including Lupus, DM II, hepatitis C and hypothyroidism.
[2018-07-02] MEDS ORDERED: ENOXAPARIN 40 MG/0.4 ML SYR SC SCH (09:00)
[2018-07-02] MEDS ORDERED: methylPREDNISolone 4 MG TAB PO SCH (09:00)
[2018-07-02] MEDS ORDERED: LORazepam 1 MG TAB PO SCH (09:00)
[2018-07-02] MEDS ORDERED: BUDESONIDE/FORMOTEROL 160/4.5 60 PUFFS/MDI IH SCH (09:00)
[2018-07-02] MEDS ORDERED: BIRTH CONTROL PILL PO SCH (09:00)
[2018-07-02] MEDS ORDERED: azaTHIOprine 50 MG TAB PO SCH (09:00)
[2018-07-02] MEDS ORDERED: HYOSCYAMINE SULFATE 0.125 MG TAB PO SCH (09:00)
[2018-07-02] MEDS ORDERED: ATENOLOL 25 MG TAB PO SCH (09:00)
[2018-07-02] MEDS: metFORMIN HCL 500 MG TAB PO SCH ×2 (10:10→17:25)
[2018-07-02] MEDS: PANTOPRAZOLE SODIUM 40 MG TAB PO SCH ×2 (10:16→17:26)
[2018-07-02] MEDS: SUCRALFATE 1 GM TAB PO SCH ×2 (10:31→17:15)
[2018-07-02] MEDS: PROMETHAZINE HCL 25 MG/ML INJ IVP PRN (10:33)
--- NOTE | 2018-07-02 15:18 | ASMTCMCOM ---
CM Note CM Note Notes: Chart reviewed. Patient plan of care reviewed in rounds. 43 year old female admitted with intractable back pain. She currently lives with her adult son. She has history of lupus, DM and chronic pain and opiate use. She is currently followed by [facility] and utilizes services from [facility]. Referral via allscripts. CM to follow. Plan: TBD Date Signed: 07/02/2018 03:16 PM Electronically Signed By:Mary Abdi RN
[2018-07-02] MEDS ORDERED: PROMETHAZINE HCL 25 MG TAB PO PRN (15:49)
--- NOTE | 2018-07-02 17:10 | HOSPPROG ---
Hospitalist Progress Note Assessment/Plan: 43 yo F w MMP, back pain, episode of incontinence neg workup home see dc summary Subjective: MRI w no reason for incontinence. pain improved Objective: Vital Signs Temp Pulse Resp BP Pulse Ox 36.9 C 54 L 16 94/58 L 98 07/02/18 15:22 07/02/18 15:22 07/02/18 15:22 07/02/18 15:22 07/02/18 15:22 07/01/18 07/02/18 07/03/18 05:59 05:59 05:59 Intake Total 300 Output Total 300 400 Balance 0 -400 - Physical Exam Constitutional: no apparent distress, appears nourished Eyes: PERRL, anicteric sclera Ears, Nose, Mouth, Throat: moist mucous membranes, hearing normal Cardiovascular: regular rate and rhythym, no murmur, rub, or gallop Respiratory: no respiratory distress, no rales or rhonchi Gastrointestinal: normoactive bowel sounds Genitourinary: no bladder fullness, No maldonado in urethra Skin: warm, normal color Musculoskeletal: full muscle strength Neurologic: AAOx3 ICD10 Worksheet Patient Problems: Problems Problem Status Onset Intractable low back pain Acute Chronic, continuous use of opioids Acute Gastritis Acute Lupus (systemic lupus erythematosus) Acute Obesity (BMI 30.0-34.9) Acute Pyelonephritis, acute Acute Transaminitis Acute
[2018-07-02 17:30] VITALS: BP 118/65
[2018-07-02] MEDS ORDERED: NORTRIPTYLINE HCL 50 MG CAP PO SCH (21:00)
[2018-07-02] MEDS ORDERED: HYDROXYCHLOROQUINE SULFATE 200 MG TAB PO SCH (21:00)
[2018-07-02] MEDS ORDERED: LEVOTHYROXINE 100 MCG TAB PO SCH (21:00)
--- NOTE | 2018-07-03 04:18 | GDS ---
DISCHARGE DIAGNOSES: 1. Chronic low back pain with episodes of incontinence. 2. Urinary incontinence. 3. Lupus. 4. Hypothyroidism. 5. Hypertension. 6. Type 2 diabetes. 7. Seizure disorder. 8. Chronic pain. 9. Opioid dependence. 10. History of hepatitis C. 11. Multiple orthopedic surgeries. REASON FOR ADMISSION: Please see admission history and physical by Dr. Aleksandr Oconnor. The patient had a couple of falls and in the context of the falls she had a couple episodes of urinary incontinence d uring pain. She is not having irritative voiding symptoms like urgency, frequency, or dysuria. She is not having fevers. HOSPITAL COURSE: She had an MRI of her lumbar spine showing no evidence of cauda equina syndrome. S he had a normal neurologic exam. There was no significant disk herniation seen on the MRI either. Mackenzie JONES was reviewed by the neurosurgery team, including the attending, who felt that there was no source for incontinence. This was discussed with her at great length. She is discharged home today. Greater than 30 minutes spent on this discharge. Notably, the patient improved earlier than gaurav calixto. /[id number]/MOD
--- NOTE | 2018-07-03 09:40 | ASDISCHSUM ---
Discharge Information Plan Status:Home with Home Health Medically Cleared to Leave: Discharge Date:07/02/2018 06:51 PM CM D/C Disposition:Home Health Service ADT D/C Disposition:[id number] Projected Discharge Date:07/04/2018 11:00 AM Transportation at D/C: Discharge Delay Reason: Follow-Up Date:07/04/2018 11:00 AM Discharge Slot: Final Diagnosis: Placement Information Referral Type:*Home Health Care Services Referral ID:[id number] Provider Name:[facility] Address 1:[address] [address] Address 2: City:[place] Selection Factors: State:[place] Patient Contact Information Contact Name:IRENE Relationship:Son Address: Home Phone: City:[place] Alternate Phone: [facility] Code:[place] Email: Financial Information Financial Class:Medicare Primary Plan Desc:MEDICARE INPATIENT Primary Plan Number:[id number] Secondary Plan Desc:[place] Secondary Plan Number:[id number] Assessment Information [facility] CM Progress Note CM Note CM Note Notes: Chart reviewed. Patient plan of care reviewed in rounds. 43 year old female admitted with intractable back pain. She currently lives with her adult son. She has history of lupus, DM and chronic pain and opiate use. She is currently followed by [facility] and utilizes services from [facility]. [facility] Plan: TBD Date Signed: 07/02/2018 03:16 PM Electronically Signed By:Mary Abdi RN Intervention Information Intervention Type:*Incorrect Registration Date of Service:07/02/2018 07:35 AM Patient Type:Observation Staff Member:Rosalinda Birmingham Hours: Discipline: Severity: Comment:
== END 2018-07-02 18:51 | disposition home health service (06) | DRG 552 ==
LOC: OBSVTOIN 21:07 → F1N 23:19
PROVIDERS: ADMIT Family Medicine; ATTEND Family Medicine
DX: M54.5 Low back pain (principal); F11.20 Opioid dependence, uncomplicated; G89.29 Other chronic pain; R32 Unspecified urinary incontinence; M32.9 Systemic lupus erythematosus, unspecified; E03.9 Hypothyroidism, unspecified; I10 Essential (primary) hypertension; E11.9 Type 2 diabetes mellitus without complications; G40.909 Epilepsy, unspecified, not intractable, without status epilepticus; J45.909 Unspecified asthma, uncomplicated
CPT/HCPCS: 96374; 97161-GP; J1170; J1650; J2060; J2405; J2550; J7500